=== PATIENT | female | born 2000 | race Two or more races ===

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

== ENCOUNTER 2021-09-03 15:35 | Emergency (ER) | payer OTHER, SELFPAY ==
[2021-09-03 15:45] VITALS: BP 149/101; PULSE 99; RESP 20; TEMP 36.5; O2SAT 100
--- NOTE | 2021-09-03 15:59 | ED.NAVMDI ---
HPI - Nausea/Vomiting/Diarrhea General Chief complaint: Nausea/Vomiting/Diarrhea Stated complaint: Throwing UP Time Seen by Provider: 09/03/21 16:00 Source: patient and RN notes reviewed Mode of arrival: ambulatory Limitations: no limitations History of Present Illness HPI Narrative: 21-year-old female presents with concern for vomiting. She reports approximate 1 episode daily of vomiting since she has cut down on her alcoholic intake. Reports she has been drinking a pint of bourbon daily, has reduced it to 1/2 pint daily. Reports she has poor appetite and has not been eating well. She denies any abdominal pain, intractable vomiting, diarrhea. Reports she last drank alcohol today. Reports she has been drinking heavily for approximately 1 and half years. Patient also reports she has been taking Zoloft for several years and has stopped taking it recently without weaning off. MD elicited complaint: vomiting Related Data Home Medications Medication Instructions Recorded Confirmed etonogestrel-ethinyl estradiol 1 vag ring VAGINAL MONTHLY 01/07/20 09/03/21 sertraline [Zoloft] 100 mg PO DAILY 01/07/20 09/03/21 loratadine [Claritin] 10 mg PO DAILY 09/03/21 09/03/21 Allergies Allergy/AdvReac Type Severity Reaction Status Date / Time No Known Allergies Allergy Verified 09/03/21 16:27 Review of Systems Review of Systems: CONSTITUTIONAL: Denies malaise, chills, sweats, or fever. CARDIOVASCULAR: Denies chest pain, palpitations, or edema. RESPIRATORY: Denies cough or dyspnea. GASTROINTESTINAL: Denies abdominal pain, diarrhea, bloody, or mucous stools. Reports nausea, vomiting, poor appetite PSYCHIATRIC: Reports alcohol dependency All systems reviewed & are unremarkable except as noted in HPI and below [facility] Past Medical History Medical History (Updated 09/03/21 @ 16:36 by Lindsey Sanchez NP) Depression Surgical History Surgical History (Updated 01/07/20 @ 11:16 by MATIAS Burk) History of dental surgery Family History Family History (Updated 01/07/20 @ 11:17 by MATIAS Burk) Father Hypertension Heart disease Social History Social History Smoking status: Never smoker Alcohol intake: never Substance use: never Gender identity (if verbalized by the patient): Female Comments At time of signature, agree with nursing past medical, surgical, social and family history. There is no relevant family history pertinent to the presenting complaint Exam Narrative: GENERAL: Well-appearing, well-nourished, and in no acute distress. HEAD: Normocephalic, atraumatic. EYES: PERRLA, conjunctivae clear, and EOMI. ENT: Mucous membranes moist. NECK: Supple. No lymphadenopathy CHEST: Speaks in full sentences. No respiratory distress. HEART: Regular rate and rhythm. ABDOMEN: Soft, obese, nondistended. No guarding, rebound tenderness, or rigid. No pulsatilla masses. Bowel sounds present in all four quadrants. SKIN: Warm, dry, no rash. NEURO: Alert and oriented x3. PSYCH: Normal mood and affect Course Course Emergency Course: Discussed with patient possibility of transfer to emergency room for further resources and treatment. Patient reports she is unable to go to the emergency room right now because she needs to get home. Patient given reasons to go to the emergency room if symptoms worsen, or do not improve. Patient is aware of, understands and agrees to treatment plan. Anticipatory guidance given. Patient agrees to follow-up as directed and is aware of reasons to seek care at the emergency department. Portions of this record may have been created with voice recognition software Vital Signs Vital signs: Vital Signs Temperature 97.7 F 09/03/21 15:45 Pulse Rate 99 09/03/21 15:45 Respiratory Rate 20 09/03/21 15:45 Blood Pressure 149/101 H 09/03/21 15:45 Pulse Oximetry 100 09/03/21 15:45 Temperature 97.7 F
== END 2021-09-03 16:40 | disposition home or self-care (01) ==
PROVIDERS: Emergency Provider Nurse Practitioner
DX: R11.2 Nausea with vomiting, unspecified (principal); F32.A Depression, unspecified
CPT/HCPCS: 99213; G0463

== ENCOUNTER 2021-09-04 18:00 | Emergency (ER) | payer OTHER, SELFPAY ==
[2021-09-04 18:13] VITALS: BP 153/99; PULSE 95; RESP 16; TEMP 36.2; O2SAT 99
[2021-09-04 18:34] LABS: Basophils Absolute Auto 0.1 K/mm3 (0.0-0.1); Basophils Percent Auto 0.7 % (0.2-1.2); Eosinophils Absolute Auto 0.1 K/mm3 (0-0.3); Eosinophils Percent Auto 0.5 % (0-4.4); Hematocrit 42.6 % (37.0-47.0); Hemoglobin 14.2 g/dL (12.0-15.0); Immature Granulocyte Absolute 0.03 K/mm3 (0.00-0.031); Immature Granulocyte Percent A 0.3 % (0-0.5); Lymphocytes Absolute Auto 2.67 K/mm3 (0.9-3.2); Lymphocytes Percent Auto 23.9 % (18.3-44.2); Mean Corpuscular HGB Conc 33.3 g/dl (32-36); Mean Corpuscular Hemoglobin 27.7 pg (26-34); Mean Platelet Volume 9.5 fl (7.4-10.4); Monocytes Absolute Auto 0.5 K/mm3 (0.1-0.6); Monocytes Percent Auto 4.5 % (2.6-8.5); Neutrophils Absolute Auto 7.8 K/mm3 (1.3-6.7); Neutrophils Percent Auto 70.1 % (45.5-73.1); Platelet Count Result 279 k/mm3 (150-375); Red Blood Count 5.13 M/mm3 (4.2-5.4); Red Cell Distribution Width 13.3 % (11.5-14.5); White Blood Count 11.2 K/mm3 (4.5-10.0)
[2021-09-04 18:49] LABS: Add Urine Microscopic? YES; Appearance Urine Cloudy (Clear); Bacteria Urine Trace /hpf; Bilirubin Urine Negative (Negative); Blood Urine Negative (Negative); Color Urine Amber (Yellow); Glucose Urine UA Negative (Negative); Ketones Urine Trace mg/dL (Negative); Leukocyte Esterase Ur Trace LEU/UL (Negative); Mucus Urine Few /lpf; Nitrate Urine Negative (Negative); Protein Urine 1+ mg/dL (Negative); RBC Urine 0-2 /hpf (0-2); Specific Grav Ur 1.024 (1.001-1.035); Squamous Epithelial Cell Urine Moderate /hpf (Few); Urobilinogen Urine Negative mg/dL (<2.0)
[2021-09-04 18:51] LABS: Alanine Aminotransferase 29 U/L (4-35); Albumin Level 4.8 g/dL (3.5-5.1); Alkaline Phosphatase 117 U/L (38-126); Anion Gap 12 mmol/L (8-16); Aspartate Amino Transferase 27 U/L (14-36); Bilirubin,Total 0.6 mg/dL (0.2-1.3); Blood Urea Nitrogen 9 mg/dL (7-17); Calcium 9.9 mg/dL (8.4-10.2); Carbon Dioxide 22 mmol/L (22-30); Chloride 103 mmol/L (98-107); Estimated CRCL calculation 175 ml/min; Estimated Glomerular Filt Rate > 60; Glucose 103 mg/dL (65-110); Potassium 3.8 mmol/L (3.4-5.0); Sodium 137 mmol/L (137-145)
--- NOTE | 2021-09-04 18:54 | ED.GENADULT ---
HPI - General Adult General Chief complaint: Unspecified Stated complaint: N/V Time Seen by Provider: 09/04/21 18:08 Source: patient and RN notes reviewed History of Present Illness HPI narrative: Patient is a 21 y/o female complaining nausea and vomiting for 1 week. She states that she is vomiting up yellow bile. She vomited 2-3 times today. There is no alleviating or exacerbating factor. She has no abdominal pain or diarrhea. Related Data Home Medications Medication Instructions Recorded Confirmed etonogestrel-ethinyl estradiol 1 vag ring VAGINAL MONTHLY 01/07/20 09/03/21 sertraline [Zoloft] 100 mg PO DAILY 01/07/20 09/03/21 loratadine [Claritin] 10 mg PO DAILY 09/03/21 09/03/21 Allergies Allergy/AdvReac Type Severity Reaction Status Date / Time No Known Allergies Allergy Verified 09/04/21 18:47 Review of Systems Constitutional: Constitutional: Denies chills, Denies fever(s), Denies headache(s) and Denies weakness Eyes: Eyes: Denies blurry vision ENT: Denies headache(s) and Denies neck pain Cardiovascular: Cardiovascular: Denies chest pain and Denies dyspnea Respiratory: Respiratory: Denies cough and Denies dyspnea Gastrointestinal: Gastrointestinal: Denies abdominal pain, Denies diarrhea, Reports nausea and Reports vomiting Genitourinary: Genitourinary: Denies hematuria and Denies dysuria Musculoskeletal: Musculoskeletal: Denies back pain and Denies neck pain Neurologic: Denies headache(s) and Denies weakness PMFSH Past Medical History Medical History Depression Surgical History Surgical History History of dental surgery Family History Family History Father Hypertension Heart disease Social History Social History Smoking status: Never smoker Alcohol intake: never Substance use: never Gender identity (if verbalized by the patient): Female Exam Const: General: no acute distress and well developed Orientation/consciousness: oriented to person, oriented to place, oriented to time and patient oriented x3 HENMT: Head: normocephalic Ears: external ears normal General nose exam: Normal external nose present Eyes: General: appearance normal, both eyes and all related structures Conjunctivae: conjunctivae normal Neck: Neck: normal visual inspection and full ROM Chest: Chest palpation & inspection: normal inspection of the chest and no tenderness Resp: Effort & Inspection: normal respiratory effort Auscultation: clear to auscultation bilaterally Cardio: Rate: regular rate Rhythm: regular rhythm GI: GI Palp: No abdominal tenderness and Yes Soft to palpation Skin: General skin exam: normal color and turgor normal Neuro: General: oriented to person, oriented to place, oriented to time and patient oriented x3 Cognition (Neuro): normal cognition Extrem: General: normal to inspection, full ROM and no pedal edema Psych: Appearance: grossly normal Mental Status: mental status grossly normal Affect: normal affect Course Vital Signs Vital signs: Vital Signs Temperature 36.2 C L 09/04/21 18:13 Pulse Rate 95 09/04/21 18:13 Respiratory Rate 16 09/04/21 18:13 Blood Pressure 153/99 H 09/04/21 18:13 Pulse Oximetry 99 09/04/21 18:13 Temperature 36.2 C L 09/04/21 18:13 Pulse Rate 80 09/04/21 21:24 Respiratory Rate 17 09/04/21 21:24 Blood Pressure 144/89 H 09/04/21 21:24 Pulse Oximetry 99 09/04/21 21:24 Medical Decision Making Vital Signs Vital Signs: Vital Signs Temperature 36.2 C L 09/04/21 18:13 Pulse Rate 95 09/04/21 18:13 Respiratory Rate 16 09/04/21 18:13 Blood Pressure 153/99 H 09/04/21 18:13 Pulse Oximetry 99 09/04/21 18:13 Temperature 36.2 C L 09/04/21 18:13 Pulse Rate 80 09/04/21 21:24 Respiratory R
[2021-09-04 19:20] LABS: Lipase 47 U/L (23-300)
[2021-09-04 19:26] VITALS: BP 148/88; PULSE 82; RESP 18; O2SAT 98
[2021-09-04] MEDS: SODIUM CHLORIDE 0.9% IV 1,000 ML 999 ML IV CONT (19:26)
[2021-09-04] MEDS: METOCLOPRAMIDE HCL INJ 10 MG/2 ML VIAL IV PUSH (19:26)
[2021-09-04 20:34] VITALS: BP 141/89; PULSE 88; RESP 17; O2SAT 97
[2021-09-04 21:24] VITALS: BP 144/89; PULSE 80; RESP 17; O2SAT 99
== END 2021-09-04 21:25 | disposition home or self-care (01) ==
PROVIDERS: Emergency Provider Emergency Medicine
DX: R11.2 Nausea with vomiting, unspecified (principal); F32.9 Major depressive disorder, single episode, unspecified
CPT/HCPCS: 36415; 80053; 81001; 81025; 83690; 85025; 87086; 87088; 96361; 96374; 99284; J2765; J7030

== ENCOUNTER 2022-06-20 12:23 | Outpatient (CLI) | payer OTHER, SELFPAY ==
--- NOTE | ~2022-06-20 | US_ITS ---
EXAMINATION: US thyroid DATE: 06/20/2022 14:11 INDICATION: Single thyroid nodule TECHNIQUE: Multiple ultrasound images of the thyroid were obtained. COMPARISON: 01/16/2020 FINDINGS: The right thyroid lobe measures 4.8 x 1.5 x 1.1 cm. The left thyroid lobe measures 7.1 x 3.4 x 2.6 c m. 4.1 cm solid wider than tall hypoechoic left thyroid nodule with smooth margins and with multiple tiny internal echogenic (TI-RADS 5, highly suspicious , FNA if >=1.0 cm, annual followup is >0.5 cm ). There is normal echotexture, echogenicity and vascular flow throughout the remainder of the thyroi d gland. IMPRESSION: 1. 4.1 cm TI RADS 5 left thyroid nodule which meets criteria for biopsy which was subsequently perfor med. Follow-up with pathology from the biopsy. Reviewed, dictated and finalized at location A. IMPRESSION: 1. 4.1 cm TI RADS 5 left thyroid nodule which meets criteria for biopsy which w as subsequently performed. Follow-up with pathology from the biopsy.
--- NOTE | ~2022-06-20 | US_ITS ---
EXAMINATION: US FNA w image guidance DATE: 06/20/2022 14:06 INDICATION: Single thyroid nodule. TECHNIQUE: The procedure and its benefits and risks were discussed with the patient. Risks specifically discusse d included bleeding. The patient verbalized understanding of the risks and agreed to proceed. The nec k was prepped and draped in the usual sterile manner. 1% lidocaine was used for local anesthesia. 6 passes were made with a 25G needle into the lesion under ultrasound guidance. There were no immedia te complications. FINDINGS: Grayscale ultrasound images demonstrate needles advanced into a 4.1 cm nodule in left thyroid lobe fo r biopsy. IMPRESSION: 1. Ultrasound-guided fine needle aspiration of a left thyroid nodule. Reviewed, dictated and finalized at location A.
== END 2022-06-20 12:24 | disposition home or self-care (01) ==
PROVIDERS: Visit Provider Physician Assistant
DX: E04.1 Nontoxic single thyroid nodule (principal)
CPT/HCPCS: 10005; 76536; 88173; 88305

== ENCOUNTER 2022-09-23 15:39 | Outpatient (CLI) | payer OTHER, SELFPAY ==
--- NOTE | ~2022-09-23 | CT_ITS ---
EXAMINATION: CT brain wo con DATE: 09/23/2022 16:01 INDICATION: Headache. TECHNIQUE: Computed tomography (CT) of the head was performed without intravenous contrast. Sagittal and coronal reconstructions were performed. The mA was adjusted according to patient size. Iterative reconstruction technique was employed. The dose-length product was 605.33 mGy-cm. COMPARISON: None FINDINGS: No acute intracranial hemorrhage, acute infarction or abnormal extra axial fluid collection. Ventricl es are normal and symmetric. No mass/mass effect. The orbits, paranasal sinuses and mastoid air cells are normal. IMPRESSION: 1. Normal head CT. Reviewed, dictated and finalized at location A. EMS TECHNOLOGIST IMPRESSION: 1. Normal head CT.
== END 2022-09-23 15:40 | disposition home or self-care (01) ==
PROVIDERS: PCP Physician Assistant; Visit Provider Physician Assistant
DX: G43.909 Migraine, unspecified, not intractable, without status migrainosus (principal)
CPT/HCPCS: 70450

== ENCOUNTER 2022-09-24 11:20 | Outpatient (CLI) | payer OTHER, SELFPAY ==
--- NOTE | 2022-10-21 19:20 | WPDSLEEPSTUD ---
Sleep Study Date of Study: 09/24/22 Ordering Provider: Angelita BecerrilBROOK Interpreting Physician: Shirin Chiu MD Sleep Study Type: Polysomnogram Height: 1.7 m Weight: 156 kg Body Mass Index: 53.8 Neck Circumference (inches): 16.5 [place]: 4 Reason for Sleep Study Frequently waking during the night, always feeling tired; nightmares Sleep History Sue Still is a 22-year-old female with complaints of waking up during the night and always feeling tired during the day. She has anxiety, and she reports nightmares for which she takes prazosin. She also has hyperthyroidism. She does not awaken from sleep feeling short of breath or awaken with heartburn, belching or coughing. She snores but it is never loud enough that others complain about it. She frequently has trouble sleeping with a cold. She does not wake up gasping for breath at night or have breathing problems at night observed by others. She does not sweat excessively at night. She frequently notices her heart pounding or beating irregularly at night. She frequently falls asleep during the day. She never falls asleep involuntarily or while driving. She does not have loss of muscle tone with strong emotion. She frequently has daytime difficulties due to excessive sleepiness. She does not feel paralyzed on waking or falling asleep nor does she have vivid dreamlike scenes upon awakening or falling asleep. She occasionally is afraid to go to sleep. She frequently has nightmares. She frequently remembers her dreams. She frequently has racing thoughts. She frequently has feelings of sadness or depression. She always has anxiety. She constantly has muscular tension. She frequently notices parts of her body jerking. She frequently kicks at night. She does not have crawling or aching feelings in her legs or any kind of leg pain at night. She does not have morning jaw pain. She does not grind her teeth at night. She is not bothered by pain during the day or awakened by pain at night. She frequently wakes up feeling stiff in the morning. She does not wake with sore achy muscles. She rarely wakes with pain in the neck and spine. She has fatigue, memory problems, concentration difficulties and insomnia. She reports a 30 lb weight loss in the last year. Normal bedtime is 10:00 p.m.. It normally takes her between 20 minutes and 1 hour to fall asleep. She wakes up during the night, a variable number of times each night. Her normal wake up time in the morning is 5:00 a.m.. On weekends, bedtime is later, 12:00 p.m. and she wakes the morning at 8:00 a.m.. She does not take naps in the afternoon or evening. A short nap is not refreshing. She is drowsy for 3 hours on waking. Habits: She smokes 4 cigarettes per day. No caffeine or alcohol. She does use recreational substances. [facility] Past Medical History Medical History (Updated 10/21/22 @ 19:38 by Shirin Chiu MD) Bipolar disorder Depression Hyperthyroidism Migraine headache Rhinitis Surgical History Surgical History History of dental surgery Family History Family History Father Hypertension Heart disease Social History Social History Smoking status: Never smoker Alcohol intake: never Substance use: never Gender identity (if verbalized by the patient): Female Medications Home Medications Medication Instructions Recorded Confirmed Type etonogestrel 0.12 mg-ethinyl 1 vag ring vaginal MONTHLY 01/07/20 09/03/21 History estradiol 0.015 mg/24 hr vaginal ring sertraline 100 mg tablet (Zoloft) 100 mg PO DAILY 01/07/20 09/03/21 History loratadine 10 mg tablet (Claritin) 10 mg PO DAILY 09/03/21 09/03/21 History ondansetron 4 mg disintegrating 4 mg PO Q8H PRN nausea and 09/03/21 Rx tablet vomiting #14 tabs Medications
[2022-10-21 20:00] VITALS: BMI 53.8
== END 2022-09-25 06:59 | disposition home or self-care (01) ==
LOC: ANHCSM 11:22
PROVIDERS: PCP Physician Assistant; Visit Provider Physician Assistant
DX: G47.33 Obstructive sleep apnea (adult) (pediatric) (principal)
CPT/HCPCS: 95810

== ENCOUNTER 2022-10-08 15:30 | Outpatient (RCR) | payer OTHER, SELFPAY ==
--- NOTE | 2022-09-09 11:15 | PTOPEVAL1 ---
Assessment and note entered by Yisel Pride, PT Evaluation Information Assessment Status Evaluation Diagnosis pain in R arm Onset February 2022 Subjective Information gradual pain and weakness in arms, no trauma or injury; both arms have pain; have problems carrying in groceries, opening jars, lifting and opening things; Reported Pain Level Pain Score Self Report Additional Pain Score Comments pain range of 2- 5/10, R arm: sharp pain, hands are tight, sometimes shoots pain in wrist; increase pain with lifting, carrying, gripping; decrease pain with resting, massage hand; is sleeping OK; have not been doing any exercises or stretches with R arm. Also has pain in the L arm, same type of pain but less than her R arm; Assessment PT Clinical Summary Lily has the diagnosis of R arm pain. She reports problems with using R arm for lifting, carrying, and gripping to open jars. Describes as tight and sore, over R shoulder, elbow, wrist and hand. She is not performing any exercises for her arm. With the evaluation, her active ROM of neck, R shoulder, elbow, wrist and fingers are WNL and active motions did not cause pain. With strength testing used hand weight: R shoulder 4#, elbow 7# and wrist 3#; B UE Lift floor/waist maximum lift of 15# and R hand only/bucket carry of 10# for 40' . Pmp Project Manager dynamometer on R was 45#/L 50#--L dominant Skilled PT services are indicated to increase R UE strength and functional activity level, to increase use of R arm. Monitor pain as activity level increases, with use of modalities PRN to manage her pain. Education for posture and home exercises. Plan of Care Interventions Electrical Stimulation,Hot Pack/Cold Pack,Manual Therapy,Neuro Re-education,Patient/Caregiver Education,Therapeutic Activities,Therapeutic Exercise,Ultrasound PT Services Indicated Yes Treatment Frequency and 1x/wk for 4 weeks Duration These treatments will address the objective and functional deficits as defined above. The patient will be advanced safely and appropriately in order for the patient to progress towards his/her prior level of function. Additional exercises will be introduced and as well as a comprehensive home exercise program upon discharge
--- NOTE | 2022-10-09 09:06 | PTOPDC ---
Assessment and note entered by Yisel Pride, PT Evaluation Information Assessment Status Discharge Diagnosis pain in R arm Onset February 2022 Subjective Information Lily reports: feels arms are stronger, still having problems opening jars, but has boyfriend to do it; has been doing the band exercises; is able to carry groceries and do everything she needs to do;
--- NOTE | 2022-10-09 10:50 | BUPTOPDC ---
Assessment and note entered by Yisel Pride, PT Evaluation Information Assessment Status Discharge Diagnosis pain in R arm Onset February 2022 Subjective Information Lily reports: feels arms are stronger, still having problems opening jars, but has boyfriend to do it; has been doing the band exercises; is able to carry groceries and do everything she needs to do; Reported Pain Level Pain Score Self Report Additional Pain Score Comments reports pain range of 0-1/10, wrist achey, upper arm sharp pain; is able to do everything need to do except sometime problems with opening jars; Assessment PT Clinical Summary Lily has received 3 PT sessions. Compared to the initial evaluation: pain has decreased at worst from 5 to 1/10 and at least 2 to 0/10; roof mechanic dynamometer has decreased 5# on both R and L; increased strength with B UE lift to 30# floor/ waist height, R 20# bucket carry, shoulder flexion and abduction, elbow and wrist motions; education completed for HEP and posture; The goals were partially achieved. Discharge PT and is to continue with exercises at home. Plan of Care Interventions discharge PT services PT Services Indicated No Treatment Frequency and Duration
== END 2022-10-09 12:55 | disposition home or self-care (01) ==
LOC: ANHPT 15:30
PROVIDERS: PCP Physician Assistant; Visit Provider Physician Assistant
DX: M79.601 Pain in right arm (principal)
CPT/HCPCS: 97110; 97140; 97161

== ENCOUNTER 2023-08-16 08:32 | Emergency (ER) | payer OTHER, SELFPAY ==
--- NOTE | 2023-08-16 08:36 | ED.ABDPAIN ---
HPI - Abdominal Pain General Chief Complaint: Nausea/Vomiting/Diarrhea Stated Complaint: stomach issues Time Seen by Provider: 08/16/23 08:36 Source: patient Mode of arrival: ambulatory Limitations: no limitations History of Present Illness HPI narrative: Lily is a 23-year-old female patient presenting to the clinic today with complaints nausea, vomiting, and diarrhea off and on for the past 4-5 days. She reports no known fever, chills, URI symptoms, sore throat, abdominal pain, urinary symptoms, vaginal discharge, or chance of . She reports she has been around some kids with the stomach bug and thinks that is what she has. Has vomited once this morning and has had 1 episode of diarrhea this morning. Related Data Home Medications Medication Instructions Recorded Confirmed etonogestrel 0.12 mg-ethinyl 1 vag ring vaginal MONTHLY 01/07/20 08/16/23 estradiol 0.015 mg/24 hr vaginal ring atenolol 25 mg tablet 25 mg PO DAILY 08/16/23 08/16/23 clonidine HCl 0.1 mg tablet 0.1 mg PO DAILY 08/16/23 08/16/23 lurasidone 20 mg tablet 20 mg PO DAILY 08/16/23 08/16/23 methimazole 5 mg tablet 5 mg PO DAILY 08/16/23 08/16/23 prazosin 2 mg capsule 2 mg PO DAILY 08/16/23 08/16/23 Allergies Allergy/AdvReac Type Severity Reaction Status Date / Time hydrocodone Allergy Intermediate Vomiting Verified 08/16/23 08:47 Review of Systems Review of Systems: Pertinent positives per HPI. Patient denies any fever, chills, rash, headache, visual changes, dizziness, cough, runny nose, sore throat, shortness of breath, chest pain, palpitations,constipation, abdominal pain, or any urinary issues. [facility] Past Medical History Medical History Bipolar disorder Depression Hyperthyroidism Migraine headache Rhinitis Surgical History Surgical History History of dental surgery Family History Family History Father Hypertension Heart disease Social History Social History Smoking status: Never smoker Alcohol intake: never Substance use: never Living arrangements: with family Occupation/Education: student Gender identity (if verbalized by the patient): Female Comments At the time of my signature, I reviewed and agree with the nursing past medical, surgical, social, and family history. There is no relevant family history pertinent to the patient complaint. Exam Narrative: General: Well-developed, morbidly obese, in no apparent distress. Head: Normocephalic, atraumatic. Cardio: Regular rate and rhythm, s1 and s2 normal, no murmur appreciated. Resp: Clear to auscultation bilaterally, no rhonchi, rales, wheezing or rubs. Abdomen: Soft, pliable, bowel sounds present in all quadrants, non-tender to palpation, no organomegly, no CVAT tenderness. Course Course Emergency Course: Portions of this record may have been created with voice recognition software. Level of Care: Express Care Visit Vital Signs Vital signs: Vital signs reviewed MDM - Abdominal Pain MDM Narrative Medical decision making narrative: At the time of visit patient is resting comfortably on the exam table. Patient is nontoxic appearing. I suspect patient has gastroenteritis. Prescription for Zofran was given for to the patient and supportive measures were discussed with the patient she voiced understanding the discharge instructions and agrees to treatment plan. Differential Diagnosis Differential diagnosis: Likely abdominal pain, acute appendicitis, calculus of kidney, constipation, diverticulitis, endometriosis, gastroenteritis, pancreatitis and small bowel obstruction Discharge Plan Discharge Clinical Impression: Gastroenteritis Patient Disposition: Home, Self-Care Condition: Stable Instruct
[2023-08-16 08:40] VITALS: BP 145/81; PULSE 77; RESP 18; TEMP 36.3
== END 2023-08-16 08:59 | disposition home or self-care (01) ==
PROVIDERS: Emergency Provider Nurse Practitioner Family; PCP Physician Assistant
DX: K52.9 Noninfective gastroenteritis and colitis, unspecified (principal); E05.90 Thyrotoxicosis, unspecified without thyrotoxic crisis or storm; F31.9 Bipolar disorder, unspecified
CPT/HCPCS: 99213; G0463

== ENCOUNTER 2023-10-16 09:23 | Emergency (ER) | payer OTHER, SELFPAY ==
[2023-10-16 09:42] VITALS: BP 144/93; PULSE 64; RESP 16; TEMP 36.3; O2SAT 100
--- NOTE | 2023-10-16 11:12 | ECG_ITS ---
Measurements Intervals [place] Rate: 58 P: 22 TN: 124 QRS: 65 QRSD: 90 T: 25 QT: 429 QTc: 424 Interpretive Statements SINUS BRADYCARDIA BASELINE ARTIFACT- I, III, AVR, AVL, AVF, V2 BORDERLINE ECG NO PREVIOUS ECG AVAILABLE FOR COMPARISON Electronically Signed On 10-16-2023 11:31:43 ACCOUNTING SOFTWARE SPECIALIST by Mg Resendiz D.O.
--- NOTE | 2023-10-16 11:25 | ED.GENADULT ---
HPI - General Adult General Chief complaint: Unspecified Stated complaint: hand swelling/diarrhea/palp Time Seen by Provider: 10/16/23 11:09 Source: patient Limitations: no limitations History of Present Illness HPI narrative: This is a 23 year old female that presents to the ER for multiple complaints ongoing over the last couple of months. Reports intermittent palpitations, diarrhea. Reports this started after being started on Effexor for anxiety and depression. Also reports feeling like her hands are swollen. Reports she called her psychiatrist and was prompted to be seen in the ER. Denies fevers, abdominal pain, hematochezia. Related Data Home Medications Medication Instructions Recorded Confirmed etonogestrel 0.12 mg-ethinyl 1 vag ring vaginal MONTHLY 01/07/20 08/16/23 estradiol 0.015 mg/24 hr vaginal ring atenolol 25 mg tablet 25 mg PO DAILY 08/16/23 08/16/23 clonidine HCl 0.1 mg tablet 0.1 mg PO DAILY 08/16/23 08/16/23 lurasidone 20 mg tablet 20 mg PO DAILY 08/16/23 08/16/23 methimazole 5 mg tablet 5 mg PO DAILY 08/16/23 08/16/23 Allergies Allergy/AdvReac Type Severity Reaction Status Date / Time hydrocodone Allergy Intermediate Vomiting Verified 10/16/23 11:35 Review of Systems Review of Systems: CONSTITUTIONAL: Denies fever GASTROINTESTINAL: Reports diarrhea. Denies abdominal pain SKIN: Denies erythema MUSCULOSKELETAL: Denies joint pain PSYCHIATRIC: Reports anxiety and depression. All systems reviewed & are unremarkable except as noted in HPI and below PMFSH Past Medical History Medical History Bipolar disorder Depression Hyperthyroidism Migraine headache Rhinitis Surgical History Surgical History History of dental surgery Family History Family History Father Hypertension Heart disease Social History Social History (Updated 09/10/23 @ 14:32 by Luba Nix MA) Smoking status: Current every day smoker Alcohol intake: current Drinks per week: 1 Substance use: never Substance use type: marijuana Lack of Transportation: No Lack of Food: Never True Current Housing: I Have Housing Concerned About Future Housing: No Difficulty Paying Gas/Electric Bills: No Difficulty Paying for Meds: No Currently Unemployed: No Education: High School Diploma/GED Difficulty w/ Childcare or Family Care: No Living arrangements: with family Occupation/Education: student Gender identity (if verbalized by the patient): Female Exam Narrative: GENERAL: Well-appearing, well-nourished, and in no acute distress. HEAD: Normocephalic, atraumatic. EYES: EOMI. ENT: Mucous membranes moist. Oropharynx without tonsillar hypertrophy exudate or other lesions. CHEST: Clear to auscultation. No respiratory distress. No wheezes rales or rhonchi HEART: Regular rate and rhythm. No murmur heard. Normal peripheral pulses. ABDOMEN: Soft, nontender, nondistended, normal active bowel sounds. EXTREMITIES: Normal range of motion. No edema. SKIN: Warm, dry, no rash. NEURO: No focal deficits. Alert and oriented x3. PSYCH: Normal mood and affect Course Course Emergency Course: Patient updated on her workup and agrees with plan of care Vital Signs Vital signs: Vital Signs Temperature 97.4 F L 10/16/23 09:42 Pulse Rate 64 10/16/23 09:42 Respiratory Rate 16 10/16/23 09:42 Blood Pressure 144/93 H 10/16/23 09:42 Pulse Oximetry 100 10/16/23 09:42 Oxygen Delivery Room Air 10/16/23 09:42 Temperature 98.7 F 10/16/23 11:35 Pulse Rate 60 10/16/23 11:35 Respiratory Rate 16 10/16/23 11:35 Blood Pressure 147/87 H 10/16/23 11:35 Pulse Oximetry 99 10/16/23 11:35 Oxygen Delivery Room Air 10/16/23 09:42 Medical Decision Making MDM Narrative Medical decision making narrative: Patient
[2023-10-16 11:35] VITALS: BP 147/87; PULSE 60; RESP 16; TEMP 37.1; O2SAT 99
[2023-10-16 11:55] LABS: Basophils Absolute Auto 0.1 K/mm3 (0.0-0.1); Basophils Percent Auto 0.6 % (0.2-1.2); Eosinophils Absolute Auto 0.2 K/mm3 (0-0.3); Hematocrit 42.6 % (37.0-47.0); Hemoglobin 13.5 g/dL (12.0-15.0); Immature Granulocyte Absolute 0.03 K/mm3 (0.00-0.031); Immature Granulocyte Percent A 0.3 % (0-0.5); Lymphocytes Absolute Auto 3.46 K/mm3 (0.9-3.2); Lymphocytes Percent Auto 31.8 % (18.3-44.2); Mean Corpuscular HGB Conc 31.7 g/dl (32-36); Mean Corpuscular Hemoglobin 27.5 pg (26-34); Mean Corpuscular Volume 86.8 fl (80-100); Monocytes Absolute Auto 0.3 K/mm3 (0.1-0.6); Neutrophils Absolute Auto 6.8 K/mm3 (1.3-6.7); Neutrophils Percent Auto 62.3 % (45.5-73.1); Platelet Count Result 245 k/mm3 (150-375); Red Blood Count 4.91 M/mm3 (4.2-5.4); Red Cell Distribution Width 12.7 % (11.5-14.5); White Blood Count 10.9 K/mm3 (4.5-10.0)
[2023-10-16 12:06] LABS: Alanine Aminotransferase 18 U/L (6-35); Albumin Level 4.2 g/dL (3.5-5.1); Alkaline Phosphatase 92 U/L (38-126); Anion Gap 8 mmol/L (8-16); Aspartate Amino Transferase 19 U/L (14-36); Bilirubin,Total 0.9 mg/dL (0.2-1.3); Blood Urea Nitrogen 14 mg/dL (7-17); Carbon Dioxide 24 mmol/L (22-30); Chloride 104 mmol/L (98-107); Estimated CRCL calculation 146 ml/min; Estimated Glomerular Filt Rate > 60; Glucose 91 mg/dL (65-110); Potassium 4.3 mmol/L (3.4-5.0); Sodium 136 mmol/L (137-145)
[2023-10-16 12:13] LABS: NT Pro B Type Natriuretic Pept 116 pg/mL (19.9-100)
[2023-10-16 13:48] LABS: Free T4 Free Thyroxine Reflex 0.92 ng/dL (0.78-2.19)
[2023-10-16 15:49] LABS: Total Triiodothyronine (T3) 1.71 NG/ML (0.97-1.69)
== END 2023-10-16 14:29 | disposition home or self-care (01) ==
PROVIDERS: Emergency Provider Physician Assistant; PCP Physician Assistant
DX: R00.2 Palpitations (principal); T43.215A Adverse effect of selective serotonin and norepinephrine reuptake inhibitors, initial encounter; E05.90 Thyrotoxicosis, unspecified without thyrotoxic crisis or storm; F41.9 Anxiety disorder, unspecified; F31.9 Bipolar disorder, unspecified; F17.200 Nicotine dependence, unspecified, uncomplicated
CPT/HCPCS: 36415; 80053; 83735; 83880; 84439; 84443; 84480; 85025; 93005; 99283

== ENCOUNTER 2023-12-07 07:46 | Outpatient (CLI) | payer OTHER, SELFPAY ==
--- NOTE | ~2023-12-07 | US_ITS ---
US breast RT limited INDICATION: Palpable right breast abnormality TECHNIQUE: Dedicated Limited right breast ultrasound COMPARISON: No prior studies for comparison. FINDINGS: The right breast is composed of normal heterogeneous echotexture without focal solid or cys tic mass. IMPRESSION: 1: Normal limited right breast ultrasound. BI-RADS CATEGORY 1 - NEGATIVE Reviewed, dictated and finalized at location A. TH AND PHYSICAL EDUCATION PROFESSOR
== END 2023-12-07 07:47 | disposition home or self-care (01) ==
PROVIDERS: PCP Physician Assistant; Visit Provider Obstetrics & Gynecology Gynecology
DX: N63.10 Unspecified lump in the right breast, unspecified quadrant (principal)
CPT/HCPCS: 76642

== ENCOUNTER 2024-09-17 08:19 | Emergency (ER) | payer OTHER, SELFPAY ==
[2024-09-17 08:26] VITALS: BP 144/67; PULSE 78; RESP 20; TEMP 36.5; O2SAT 100
--- NOTE | 2024-09-17 08:39 | ED.URI ---
HPI - URI/Sore Throat General Chief Complaint: Dental/Oral Stated Complaint: Dental Pain Time Seen by Provider: 09/17/24 08:39 Source: patient, RN notes reviewed and old records reviewed Mode of arrival: ambulatory Limitations: no limitations History of Present Illness HPI Narrative: Patient presents with complaints of bilateral upper dental pain. She reports that symptoms began about 6 days ago. She denies any injury or trauma. She reports that she has been taking ibuprofen with moderate relief. She denies any swelling or drainage. Denies any fever, chills, sweats. She reports that she is able to eat and drink without any difficulty. Related Data Home Medications Medication Instructions Recorded Confirmed etonogestrel 0.12 mg-ethinyl 1 vag ring vaginal MONTHLY 01/07/20 09/17/24 estradiol 0.015 mg/24 hr vaginal ring lurasidone 20 mg tablet 20 mg PO DAILY 08/16/23 09/17/24 methimazole 5 mg tablet 5 mg PO DAILY 08/16/23 09/17/24 prazosin 2 mg capsule 2 mg PO QHS 04/26/24 09/17/24 propranolol 20 mg tablet 20 mg PO Q12H 04/26/24 09/17/24 folic acid 20 mg capsule 20 mg PO DAILY 09/05/24 09/17/24 Allergies Allergy/AdvReac Type Severity Reaction Status Date / Time hydrocodone Allergy Intermediate Vomiting Verified 09/17/24 08:32 Review of Systems Review of Systems: All systems reviewed & are unremarkable except as noted in HPI and below Constitutional: Constitutional: Reports no additional constitutional complaints ENT: Reports system reviewed and no additional complaints, except as documented and Reports dental pain Cardiovascular: Cardiovascular: Reports no additional cardiovascular complaints Respiratory: Respiratory: Reports no additional respiratory complaints Gastrointestinal: Gastrointestinal: Reports no additional gastrointestinal complaints [facility] Past Medical History Medical History Bipolar disorder Depression Hyperthyroidism Migraine headache Rhinitis Surgical History Surgical History History of dental surgery Family History Family History Father Hypertension Heart disease Social History Social History Smoking status: Current every day smoker Alcohol intake: current Drinks per week: 1 Substance use: never Substance use type: marijuana Do You Feel Safe in your Home?: Yes Lack of Transportation: No Lack of Food: Never True Current Housing: I Have Housing Concerned About Future Housing: No Difficulty Paying Gas/Electric Bills: No Difficulty Paying for Meds: No Currently Unemployed: Decline to Answer Education: Decline to Answer Difficulty w/ Childcare or Family Care: No Living arrangements: with family Occupation/Education: student Gender identity (if verbalized by the patient): Female Comments At the time of my signature, I reviewed and agree with the nursing past medical, surgical, social, and family history. There is no relevant family history pertinent to the patient complaint. Exam Const: General: cooperative, no acute distress, alert and awake Orientation/consciousness: oriented to person, oriented to place and oriented to time HENMT: Head: normal to inspection Ears: TM's normal bilaterally Mouth: Yes Normal oral and palatal mucosa present, Yes moist mucous membranes and No drooling Teeth and gingiva: dentition normal and gingiva normal Resp: Effort & Inspection: normal respiratory effort and able to speak in complete sentences Auscultation: clear to auscultation bilaterally, no crackles, no rales, no rhonchi and no wheezes Cardio: Palpation: normal PMI Rate: regular rate Rhythm: regular rhythm Heart sounds: S1 normal heart sound present and S2 normal heart sound present Neuro: General: oriented to person, oriented to place and oriented to time Cranial nerves: Yes CN's II-XII intact bilaterally Psych: Appearance: grossly normal Thought process: Normal thought process present Insight: Good insight present (Psych) Judgement: Good judgement present (Psych) Course Course Level of Care: Express Care Visit Vital Signs Vital signs: Vital Signs Temperature 97.7 F 09/17/24 08:26 Pulse Rate 78 09/17/24 08:26 Respiratory Rate 20 09/17/24 08:26 Blood Pressure 144/67 H 09/17/24 08:26 Pulse Oximetry 100 09/17/24 08:26 Oxygen Delivery Room Air 09/17/24 08:26 Temperature 97.7 F 09/17/24 08:26 Pulse Rate 78 09/17/24 08:26 Respiratory Rate 20 09/17/24 08:26 Blood Pressure 144/67 H 09/17/24 08:26 Pulse Oximetry 100 09/17/24 08:26 Oxygen Delivery Room Air 09/17/24 08:26 Reviewed MDM - URI/Sore Throat MDM Narrative Medical decision making narrative: Patient without obvious source of dental pain. Advised to stop ibuprofen. Start naproxen. Follow with dentist without fail. Follow with primary care provider. Discharge instructions reviewed with patient, as well as provided in writing per nursing staff. The instructions also include specific and strict return/GO TO THE ER as well as f/u information. All questions have been answered, and the patient deny any further questions with discharge and discharge plan. Some parts of this dictation were generated by voice recognition software and may contain typographical and/or grammatical inaccuracies. Differential Diagnosis Differential diagnosis: Likely other (Gingivitis, dental caries) Medical Records Attestation: I reviewed the patient's medical records. Discharge Plan Discharge Clinical Impression: Acute oral pain Patient Disposition: Home, Self-Care Condition: Stable Instructions: Antibiotic Form, Toothache (ED) Additional Instructions: Take medications as prescribed. While taking naproxen, do not take ibuprofen. Follow-up with dentist. Emergency department for new or worse symptoms Patient Language: Syriac Prescriptions: New naproxen 500 mg tablet 500 mg PO BID PRN (Reason: pain) Qty: 30 0RF No Action methimazole 5 mg tablet 5 mg PO DAILY lurasidone 20 mg tablet 20 mg PO DAILY etonogestrel-ethinyl estradiol 0.12-0.015 mg/24 hr ring 1 vag ring VAGINAL MONTHLY prazosin 2 mg capsule 2 mg PO QHS propranolol 20 mg tablet 20 mg PO Q12H folic acid 20 mg capsule 20 mg PO DAILY zonisamide 25 mg capsule 25 mg PO DAILY Qty: 240 7RF Rx Instructions: start with 25 mg at bedtime increase at a rate of 25 mg every week to a target of 300 mg at bedtime Follow-up/Referrals: Jerrica,BROOK Garcia [Primary Care Provider] - 1 Week Stand Alone Forms: Work/School Release IP Time of Disposition: 08:57
== END 2024-09-17 09:05 | disposition home or self-care (01) ==
PROVIDERS: Emergency Provider Nurse Practitioner Family; PCP Physician Assistant
DX: K13.79 Other lesions of oral mucosa (principal); E05.90 Thyrotoxicosis, unspecified without thyrotoxic crisis or storm; F31.9 Bipolar disorder, unspecified; F17.210 Nicotine dependence, cigarettes, uncomplicated
CPT/HCPCS: 99213; G0463